=== PATIENT | male | born 1965 | race African-American/Black ===

== ENCOUNTER 2019-12-09 11:27 | Emergency (ER) | payer OTHER ==
[2019-12-09 11:50] LABS: HEMATOCRIT 35.5 % (39.0-50.0); HEMOGLOBIN 12.1 g/dl (14.0-18.0); IMMATURE GRANULOCYTES 0.2 % (0.0-5.0); MEAN CELL VOLUME 87.4 fL CALC (80.0-100.0); MEAN CORPUSCULAR HGB 29.8 pG CALC (26.0-32.0); MEAN CORPUSCULAR HGB CONC 34.1 g/dL CAL (32.0-36.0); NEUT# 1.81 thou/uL (1.82-7.42); RED BLOOD COUNT 4.06 mill/uL (4.70-6.10); RED CELL DISTRI WIDTH 13.8 % (11.5-15.5)
[2019-12-09 12:06] LABS: ALKALINE PHOSPHATASE 40 u/l (38-126); ANION GAP 9 (6-22 (CALC)); BILIRUBIN, TOTAL 1.1 mg/dL (0.0-1.4); BUN 11 mg/dL (9-20); BUN/CREATININE RATIO 12 (12-20 (CALC)); CARBON DIOXIDE 24 mmol/l (22-30); CHLORIDE 110 mmol/l (95-108); CREATININE 0.9 mg/dL (0.7-1.3); GFR > 60 ML/MIN (>=60 (CALC)); GFR FOR AFR.AMER. > 60 ML/MIN (>=60 (CALC)); POTASSIUM 4.7 mmol/l (3.5-5.1); SGOT/AST 23 u/l (17-59); SODIUM 139 mmol/l (137-146); TOTAL PROTEIN 7.4 g/dL (6.3-8.2)
[2019-12-09 12:14] LABS: INTERNATIONAL NORMALIZED RATIO 1.1 RATIO (0.7-1.3); PROTHROMBIN TIME 11.8 SECONDS (9.0-12.5)
[2019-12-09 12:17] LABS: MYOGLOBIN 34 ng/mL (0 - 121)
[2019-12-09 12:42] VITALS: BP 128/77
== END 2019-12-09 12:42 | disposition short-term general hospital (02) | DRG 311 ==
LOC: ED 11:27
PROVIDERS: Family Medicine
DX: I20.0 Unstable angina (principal); I10 Essential (primary) hypertension; I25.2 Old myocardial infarction

== ENCOUNTER 2020-04-20 12:15 | Observation (INO) | payer OTHER ==
[~2020-04-20] VITALS: Ht 167.6 cm; Wt 57.7 kg
--- NOTE | 2020-04-20 12:38 | NUR ---
PT TO ROOM PER EMS AND OFFICERS, PT STATES HAS CHEST PAIN, WAS GIVEN ASA AND NITRO AT FACILITY.
[2020-04-20 12:49] LABS: HEMATOCRIT 35.3 % (39.0-50.0); IMMATURE GRANULOCYTES 0.2 % (0.0-5.0); MEAN CORPUSCULAR HGB 29.9 pG CALC (26.0-32.0); NEUT# 1.55 thou/uL (1.82-7.42); RED BLOOD COUNT 4.01 mill/uL (4.70-6.10); RED CELL DISTRI WIDTH 13.2 % (11.5-15.5)
[2020-04-20 12:56] LABS: URINE BILIRUBIN - DIPSTICK NEGATIVE (NEGATIVE); URINE BLOOD DIPSTICK NEGATIVE (NEGATIVE); URINE CLARITY CLEAR; URINE COLOR YELLOW; URINE GLUCOSE - DIPSTICK NEGATIVE (NEGATIVE); URINE KETONE NEGATIVE (NEGATIVE); URINE LEUK ESTERASE NEGATIVE (Negative); URINE NITRITE - DIPSTICK NEGATIVE (Negative); URINE PROTEIN - DIPSTICK NEGATIVE (NEG-TRACE); URINE UROBILINOGEN - DIPSTICK 0.2 E.U./dL (0.2)
[2020-04-20 12:58] LABS: ALBUMIN 4.1 g/dL (3.2-5.0); ALKALINE PHOSPHATASE 45 u/l (38-126); ANION GAP 12 (6-22 (CALC)); BILIRUBIN, TOTAL 0.9 mg/dL (0.0-1.4); BUN 11 mg/dL (9-20); BUN/CREATININE RATIO 13 (12-20 (CALC)); CARBON DIOXIDE 23 mmol/l (22-30); CHLORIDE 106 mmol/l (95-108); CREATININE 0.9 mg/dL (0.7-1.3); GFR > 60 ML/MIN (>=60 (CALC)); GFR FOR AFR.AMER. > 60 ML/MIN (>=60 (CALC)); LIPASE 142 u/l (23-300); POTASSIUM 4.3 mmol/l (3.5-5.1); SGOT/AST 33 u/l (17-59); SODIUM 137 mmol/l (137-146); TOTAL PROTEIN 7.7 g/dL (6.3-8.2)
[2020-04-20 13:10] LABS: MYOGLOBIN 37 ng/mL (0 - 121)
--- NOTE | 2020-04-20 13:35 | NUR ---
PT RESTING QUIETLY ON STRETCHER
--- NOTE | 2020-04-20 13:40 | NUR ---
PT UNABLE TO TELL STAFF THE MEDICATIONS OR DOSAGE OF MEDS TAKEN
--- NOTE | 2020-04-20 14:22 | NUR ---
PT RESTING QUIETLY ON STRETCHER STATES PAIN IS DOWN TO A 2
[2020-04-20] MEDS ORDERED: NORVASC10 M1 PO (14:37)
[2020-04-20] MEDS ORDERED: ZESTRIL10 M1 PO (14:38)
[2020-04-20] MEDS ORDERED: PEPCID20 MG PO (14:38)
[2020-04-20] MEDS ORDERED: TRILEPTAL300 M1 PO (14:39)
[2020-04-20] MEDS ORDERED: CALCIUM CARB500 MG PO (14:39)
--- NOTE | 2020-04-20 14:40 | NUR ---
WAS FINALLY ABLE TO GET THRU TO MEDICAL AT [facility] AND SPOKE WITH NURSE WITH UPDATE OF ADMISSION AND WAS GIVEN MEDICATION LIST.
--- NOTE | 2020-04-20 15:37 | NUR ---
REPORT GIVEN TO FLOOR FOR CONTINUATION OF CARE
--- NOTE | 2020-04-20 16:08 | NUR ---
PT ARRIVED TO THE FLOOR ACCOMPANIED BY STAFF AND GUARDS X2. VS OBTAINED. PT REPORTS SHARP CHEST PAIN RATING IT 9/10. PT SOB ON RA O2 @ 2L APPLIED. TELE IN PLACE.
--- NOTE | 2020-04-20 16:10 | NUR ---
PLACED TELEMETRY ON PT AND PT TAKEN TO FLOOR PER STRETCHER
--- NOTE | 2020-04-20 16:11 | NUR ---
ER CALL WITH RHYTHM CHANGE, ANRP CARTEE NOTIFIED.
[2020-04-20 16:16] VITALS: BP 146/101
--- NOTE | 2020-04-20 16:16 | NUR ---
ANRP CARTEE AT BEDSIDE, EKG TO BE OBTAINED.
--- NOTE | 2020-04-20 16:40 | NUR ---
SPOKE WITH DONA FROM [facility]. PT DEMOGRAPHICS PROVIDED AND FACESHEET FAXED,
--- NOTE | 2020-04-20 16:59 | NUR ---
PT TRANSFERED TO ICU BED 8
[2020-04-20 17:00] VITALS: BP 191/95
--- NOTE | 2020-04-20 17:00 | NUR ---
PT TO ICU BED 8 VIA BED. PT PLACED ON MONITOR. HR 45-55. #20 PLACED TO RFA TROPONIN OBTAINED. GUARDS AT BEDSIDE. CALL LIGHT IN REACH.
--- NOTE | 2020-04-20 17:05 | NUR ---
DONA FROM [facility], PT ACCEPTED PT TO DR. LAGUERRE. 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
--- NOTE | 2020-04-20 17:08 | NUR ---
REPORT GIVEN TO RAMIRO FROM THE CATHLAB AT [facility]
--- NOTE | 2020-04-20 17:08 | NUR ---
NOTIFIED JORDANA AT [facility], . ETA 18MIN.
--- NOTE | 2020-04-20 17:12 | NUR ---
HEPARIN BOLUS OF 3500 UNITS GIVEN IV. THEN BOLUS STARTED PER FLOWSHEET
[2020-04-20 17:15] VITALS: BP 180/101
--- NOTE | 2020-04-20 17:29 | NUR ---
HEPARIN 1500 UNITS GIVEN FOR ADDITIONAL BOLUS FOR CARDIAC PROTOCOL
[2020-04-20 17:30] VITALS: BP 175/101
--- NOTE | 2020-04-20 17:34 | NUR ---
DR MATTHEWS CALLED FOR UPDATE. UPDATE PROVIDED.
--- NOTE | 2020-04-20 17:44 | NUR ---
[facility] AT BEDSIDE, REPORT GIVEN. BRISEYDA PLASENCIA AT BEDSIDE DONA AT [facility] NOTIFIED, OF FLIGHT TIME APPROX 20MIN.
--- NOTE | 2020-04-20 17:53 | NUR ---
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
--- NOTE | 2020-04-20 18:36 | NUR ---
FAXED BIOFIRE RESULTS TO DONA AT [facility],
== END 2020-04-20 17:53 | disposition short-term general hospital (02) | DRG 282 ==
LOC: ED 12:15 → ED-I 14:32 → ED 14:41 → MS2 14:42 → ICU 16:45
PROVIDERS: Emergency Medicine; ADMIT Internal Medicine; ATTEND Internal Medicine
DX: I21.3 ST elevation (STEMI) myocardial infarction of unspecified site (principal); I10 Essential (primary) hypertension; I25.2 Old myocardial infarction; Z95.5 Presence of coronary angioplasty implant and graft; Z20.828 Contact with and (suspected) exposure to other viral communicable diseases
CPT/HCPCS: J1644

== ENCOUNTER 2020-04-26 08:54 | Emergency (ER) | payer OTHER ==
[~2020-04-26] VITALS: Ht 167.6 cm; Wt 55.2 kg
[~2020-04-26 08:54] MED LIST: CALCIUM CARB500 MG PO; NORVASC10 M1 PO; PEPCID20 MG PO; TRILEPTAL300 M1 PO; ZESTRIL10 M1 PO
[2020-04-26 09:16] LABS: HEMATOCRIT 38.9 % (39.0-50.0); HEMOGLOBIN 12.9 g/dl (14.0-18.0); IMMATURE GRANULOCYTES 0.2 % (0.0-5.0); MEAN CELL VOLUME 88.8 fL CALC (80.0-100.0); MEAN CORPUSCULAR HGB 29.5 pG CALC (26.0-32.0); MEAN CORPUSCULAR HGB CONC 33.2 g/dL CAL (32.0-36.0); NEUT# 2.06 thou/uL (1.82-7.42); RED BLOOD COUNT 4.38 mill/uL (4.70-6.10); RED CELL DISTRI WIDTH 12.8 % (11.5-15.5)
[2020-04-26] MEDS ORDERED: PLAVIX75 MG PO (09:29)
[2020-04-26] MEDS ORDERED: LIPITOR20 MG PO (09:30)
[2020-04-26] MEDS ORDERED: LOPRESSOR25 MG PO (09:30)
[2020-04-26 09:46] LABS: ACT PARTIAL THROMBO TIME 23.4 SECONDS (20.0-32.5); INTERNATIONAL NORMALIZED RATIO 1.1 RATIO (0.7-1.3); PROTHROMBIN TIME 11.2 SECONDS (9.0-12.5)
[2020-04-26 10:25] LABS: ALBUMIN 3.9 g/dL (3.2-5.0); ALKALINE PHOSPHATASE 48 u/l (38-126); ANION GAP 10 (6-22 (CALC)); BILIRUBIN, TOTAL 0.7 mg/dL (0.0-1.4); BUN 13 mg/dL (9-20); BUN/CREATININE RATIO 13 (12-20 (CALC)); CARBON DIOXIDE 23 mmol/l (22-30); CHLORIDE 110 mmol/l (95-108); GFR > 60 ML/MIN (>=60 (CALC)); GFR FOR AFR.AMER. > 60 ML/MIN (>=60 (CALC)); POTASSIUM 4.7 mmol/l (3.5-5.1); SGOT/AST 27 u/l (17-59); SODIUM 138 mmol/l (137-146); TOTAL PROTEIN 7.3 g/dL (6.3-8.2)
[2020-04-26 10:30] VITALS: BP 146/91
== END 2020-04-26 10:30 | disposition short-term general hospital (02) | DRG 303 ==
LOC: ED 08:54
PROVIDERS: Family Medicine
DX: I25.110 Atherosclerotic heart disease of native coronary artery with unstable angina pectoris (principal); I10 Essential (primary) hypertension; I25.2 Old myocardial infarction; Z95.5 Presence of coronary angioplasty implant and graft; Z20.828 Contact with and (suspected) exposure to other viral communicable diseases
CPT/HCPCS: J1644; J2060

== ENCOUNTER 2020-06-07 05:16 | Emergency (ER) | payer OTHER ==
[~2020-06-07] VITALS: Ht 167.6 cm; Wt 58.0 kg
[~2020-06-07 05:16] MED LIST changes: +LIPITOR20 MG PO; +LOPRESSOR25 MG PO; +PLAVIX75 MG PO
[2020-06-07 05:47] LABS: HEMOGLOBIN 12.1 g/dl (14.0-18.0); IMMATURE GRANULOCYTES 0.2 % (0.0-5.0); MEAN CELL VOLUME 87.2 fL CALC (80.0-100.0); MEAN CORPUSCULAR HGB 29.3 pG CALC (26.0-32.0); MEAN CORPUSCULAR HGB CONC 33.6 g/dL CAL (32.0-36.0); NEUT# 2.78 thou/uL (1.82-7.42); RED BLOOD COUNT 4.13 mill/uL (4.70-6.10); RED CELL DISTRI WIDTH 13.2 % (11.5-15.5)
[2020-06-07] MEDS ORDERED: PROTONIX40 M2 PO (05:54)
[2020-06-07 05:56] LABS: ALBUMIN 4.4 g/dL (3.2-5.0); ALKALINE PHOSPHATASE 49 u/l (38-126); BUN 10 mg/dL (9-20); BUN/CREATININE RATIO 10 (12-20 (CALC)); CHLORIDE 105 mmol/l (95-108); GFR > 60 ML/MIN (>=60 (CALC)); GFR FOR AFR.AMER. > 60 ML/MIN (>=60 (CALC)); POTASSIUM 4.3 mmol/l (3.5-5.1); SGOT/AST 37 u/l (17-59); SODIUM 142 mmol/l (137-146)
[2020-06-07 06:03] LABS: INTERNATIONAL NORMALIZED RATIO 1.2 RATIO (0.7-1.3); PROTHROMBIN TIME 11.6 SECONDS (9.0-12.5)
[2020-06-07 06:08] LABS: MYOGLOBIN 44 ng/mL (0 - 121)
[2020-06-07 06:09] LABS: ANION GAP 13 (6-22 (CALC)); BILIRUBIN, TOTAL 0.4 mg/dL (0.0-1.4); CARBON DIOXIDE 28 mmol/l (22-30)
[2020-06-07 06:17] VITALS: BP 124/80
== END 2020-06-07 06:20 | disposition short-term general hospital (02) | DRG 282 ==
LOC: ED 05:16
PROVIDERS: Emergency Medicine
DX: I21.3 ST elevation (STEMI) myocardial infarction of unspecified site (principal); I25.10 Atherosclerotic heart disease of native coronary artery without angina pectoris; I25.2 Old myocardial infarction
CPT/HCPCS: J2997

== ENCOUNTER 2020-08-31 23:45 | Observation (INO) | payer OTHER ==
[~2020-08-31] VITALS: Ht 167.6 cm; Wt 59.0 kg
[~2020-08-31 23:45] MED LIST changes: +PROTONIX40 M2 PO
[2020-09-01] VITALS (12 sets, daily range): BP systolic 98–139; BP diastolic 55–81
[2020-09-01 00:50] LABS: IMMATURE GRANULOCYTES 0.2 % (0.0-5.0); MEAN CELL VOLUME 85.2 fL CALC (80.0-100.0); MEAN CORPUSCULAR HGB 28.7 pG CALC (26.0-32.0); MEAN CORPUSCULAR HGB CONC 33.7 g/dL CAL (32.0-36.0); NEUT# 2.36 thou/uL (1.82-7.42); RED BLOOD COUNT 3.45 mill/uL (4.70-6.10); RED CELL DISTRI WIDTH 13.2 % (11.5-15.5)
[2020-09-01 00:55] LABS: HEMATOCRIT 29.4 % (39.0-50.0); HEMOGLOBIN 9.9 g/dl (14.0-18.0)
[2020-09-01 01:10] LABS: ALKALINE PHOSPHATASE 58 u/l (38-126); ANION GAP 11 (6-22 (CALC)); BILIRUBIN, TOTAL 0.5 mg/dL (0.0-1.4); BUN 17 mg/dL (9-20); BUN/CREATININE RATIO 15 (12-20 (CALC)); CARBON DIOXIDE 27 mmol/l (22-30); CHLORIDE 103 mmol/l (95-108); CREATININE 1.1 mg/dL (0.7-1.3); GFR > 60 ML/MIN (>=60 (CALC)); GFR FOR AFR.AMER. > 60 ML/MIN (>=60 (CALC)); POTASSIUM 4.1 mmol/l (3.5-5.1); SGOT/AST 34 u/l (17-59); SODIUM 137 mmol/l (137-146); TOTAL PROTEIN 7.5 g/dL (6.3-8.2)
[2020-09-01] MEDS ORDERED: PEPCID20 MG PO (01:15)
[2020-09-01] MEDS ORDERED: LONITEN2.5 M1 PO (01:16)
[2020-09-01] MEDS ORDERED: LONITEN2.5 MG PO (01:17)
[2020-09-01 01:23] LABS: MYOGLOBIN 43 ng/mL (0 - 121)
[2020-09-01 03:13] LABS: URINE BILIRUBIN - DIPSTICK NEGATIVE (NEGATIVE); URINE BLOOD DIPSTICK NEGATIVE (NEGATIVE); URINE COLOR YELLOW; URINE GLUCOSE - DIPSTICK NEGATIVE (NEGATIVE); URINE KETONE NEGATIVE (NEGATIVE); URINE LEUK ESTERASE NEGATIVE (NEGATIVE); URINE NITRITE - DIPSTICK NEGATIVE (Negative); URINE PROTEIN - DIPSTICK NEGATIVE (NEG-TRACE); URINE UROBILINOGEN - DIPSTICK 0.2 E.U./dL (0.2)
[2020-09-02 03:43] VITALS: BP 101/64
[2020-09-02 08:39] VITALS: BP 115/72
[2020-09-02 11:13] VITALS: BP 107/68
[2020-09-02] MEDS ORDERED: FLEXERIL5 M1 PO (14:48)
[2020-09-02] MEDS ORDERED: ULTRAM50 M1 PO (14:48)
[2020-09-02] MEDS ORDERED: TYLENOL500 MG PO (14:48)
== END 2020-09-02 16:29 | DRG 313 ==
LOC: ED 23:45 → ED-I 09-01 02:15 → ED 09-01 02:29 → ICU 09-01 02:30 → MS2 09-01 18:07
PROVIDERS: Emergency Medicine; ADMIT Internal Medicine; ATTEND Internal Medicine
DX: R07.89 Other chest pain (principal); N63.20 Unspecified lump in the left breast, unspecified quadrant; I10 Essential (primary) hypertension; I25.10 Atherosclerotic heart disease of native coronary artery without angina pectoris; I25.2 Old myocardial infarction; Z95.5 Presence of coronary angioplasty implant and graft; Z20.822 Contact with and (suspected) exposure to COVID-19; Z79.02 Long term (current) use of antithrombotics/antiplatelets